=== PATIENT | female | born 1955 | race Caucasian/White ===

== ENCOUNTER → 2017-06-03 | Outpatient (CLI) | payer BC ==
--- NOTE | 2017-06-07 06:49 | MM ---
Reason for exam: screening (asymptomatic). Last mammogram was performed 1 year and 1 month ago. History: Patient is postmenopausal. Took estrogen for 7 years. Took progesterone for 7 years. Physical Findings: A clinical breast exam by your physician is recommended on an annual basis and results should be correlated with mammographic findings. MG Screening Mammo w CAD Bilateral CC and MLO view(s) were taken. Prior study comparison: May 06, 2016, bilateral MG screening mammo w CAD. January 28, 2015, bilateral MG screening mammo w CAD. The breast tissue is heterogeneously dense. This may lower the sensitivity of mammography. There is no discrete abnormality. ASSESSMENT: Negative, BI-RAD 1 RECOMMENDATION: Routine screening mammogram of both breasts in 1 year.
== END | disposition home or self-care (01) ==
LOC: RADMAMWWP 14:33
PROVIDERS: ATTEND Family Medicine
DX: Z12.31 Encounter for screening mammogram for malignant neoplasm of breast (principal)

== ENCOUNTER → 2018-08-08 | Outpatient (CLI) | payer MEDICARE, BC ==
--- NOTE | 2018-08-10 08:20 | MM ---
Reason for exam: screening (asymptomatic). Last mammogram was performed 1 year and 2 months ago. History: Patient is postmenopausal. Took estrogen for 7 years. Took progesterone for 7 years. Physical Findings: A clinical breast exam by your physician is recommended on an annual basis and results should be correlated with mammographic findings. MG 3D Screening Mammo W/Cad Bilateral CC and MLO view(s) were taken. Prior study comparison: June 03, 2017, bilateral MG screening mammo w CAD. May 06, 2016, bilateral MG screening mammo w CAD. The breast tissue is heterogeneously dense. This may lower the sensitivity of mammography. No significant changes when compared with prior studies. ASSESSMENT: Negative, BI-RAD 1 RECOMMENDATION: Routine screening mammogram of both breasts in 1 year.
== END | disposition home or self-care (01) ==
LOC: RADMAMWWP 13:34
PROVIDERS: ATTEND Family Medicine
DX: Z12.31 Encounter for screening mammogram for malignant neoplasm of breast (principal)
CPT/HCPCS: 77063; 77067

== ENCOUNTER → 2019-05-03 | Outpatient (CLI) | payer MEDICARE, BC ==
--- NOTE | 2019-05-03 09:25 | BD ---
EXAMINATION TYPE: Axial Bone Density DATE OF EXAM: 05/03/2019 COMPARISON: NONE CLINICAL HISTORY: 63 YR OLD PATIENT....ICD-10 CODE: N95.1 MENOPAUSAL Height: 67 Weight: 195 FRAX RISK QUESTIONS: Secondary Osteoporosis: YES 3. Menopause before 45: YES, NATURAL AT 42 YRS OLD RISK FACTORS HISTORY OF: Family History of Osteoporosis: YES, SISTER NO HIP FX Diet low in dairy products/other sources of calcium: YES Postmenopausal woman: YES, AT 42 YRS OLD, NATURAL Take estrogen and/or progesterone medications: YES, IN THE PAST FOR ABOUT 2 YRS MEDICATIONS: Additional Medications: STATIN FOR CHOLESTEROL, TUMS FOR CALCIUM Additional History: NOTHING TO NOTE HERE EXAM MEASUREMENTS: Bone mineral densitometry was performed using the [employer] System. Bone mineral density as measured about the Lumbar spine is: ----- L1-L4(G/cm2): 0.910 T Score Values are as follows: ----- L1: -2.1 ----- L2: -3.1 ----- L3: -2.9 ----- L4: -1.2 ----- L1-L4: -2.2 Bone mineral density FIRST BONE DENSITY .......BASELINE DEXA STUDY Bone mineral density about the R hip (g/cm2): 0.791 Bone mineral density about the L hip (g/cm2): 0.767 T Score values are as follows: -----R Neck: -1.7 -----L Neck: -1.9 -----R Total: -1.7 -----L Total: -1.9 Bone mineral density FIRST BONE DENSITY.....BASELINE STUDY FRAX%s: THERE IS A 10.2% CHANCE FOR A MAJOR OSTEOPOROTIC FX AND A 1.5% FOR HIP....PROBABILITY FOR F X IN 10 YRS TIME IMPRESSION: Osteoporosis (T Score less than -2.5) with regards to the lumbar spine. There is increased fracture risk and therapy is usually indicated based on age. Re-Screen 1-2 years. NOTE: T-SCORE=SD OF THE YOUNG ADULT MEAN.
== END | disposition home or self-care (01) ==
LOC: RADBDWWP 08:38
PROVIDERS: ATTEND Family Medicine
DX: M81.0 Age-related osteoporosis without current pathological fracture (principal); N95.9 Unspecified menopausal and perimenopausal disorder
CPT/HCPCS: 77080

== ENCOUNTER → 2020-05-29 | Outpatient (CLI) | payer BC, MEDICARE ==
[~2020-05-29] MED LIST: SODIUM CHLORIDE 0.9% 500 ML 500 ML in EMPTY BAG 1 BAG IV PRN; ZOLEDRONIC ACID 5 MG in SODIUM CHLORIDE 0.9% 100 ML IV NR
[2020-05-29 14:36] VITALS: BP 121/65; PULSE 77; RESP 16; TEMP 98.5
== END | disposition home or self-care (01) ==
LOC: PROCWHC3 14:11
PROVIDERS: ATTEND Nurse Practitioner Family
DX: M81.0 Age-related osteoporosis without current pathological fracture (principal)
CPT/HCPCS: 96365; J3489

== ENCOUNTER → 2020-06-18 | Outpatient (CLI) | payer BC, MEDICARE ==
--- NOTE | 2020-06-19 09:10 | MM ---
Reason for exam: screening (asymptomatic). Last mammogram was performed 1 year and 10 months ago. History: Patient is postmenopausal. Took estrogen for 7 years beginning at age 39. Took progesterone for 7 years beginning at age 39. Physical Findings: A clinical breast exam by your physician is recommended on an annual basis and results should be correlated with mammographic findings. MG Screening Mammo w CAD Bilateral CC and MLO view(s) were taken. Prior study comparison: August 08, 2018, bilateral MG 3d screening mammo w/cad. June 03, 2017, bilateral MG screening mammo w CAD. The breast tissue is extremely dense which could obscure a lesion on mammography. Finding #1: There is a 6 mm equal density (isodense) mass in the central position of the right breast. Finding #2: There are typically benign vascular calcifications. ASSESSMENT: Incomplete: need additional imaging evaluation, BI-RAD 0 RECOMMENDATION: Special view mammogram of the right breast. If lesion persists on supplemental views, image directed ultrasound is recommended. [facility] will attempt to contact patient to return for supplemental views and ultrasound if indicated.
== END | disposition home or self-care (01) ==
LOC: RADMAMWWP 09:35
PROVIDERS: ATTEND Family Medicine
DX: Z12.31 Encounter for screening mammogram for malignant neoplasm of breast (principal)
CPT/HCPCS: 77067

== ENCOUNTER → 2020-07-24 | Outpatient (CLI) | payer MEDICARE ==
--- NOTE | 2020-07-24 14:10 | MM ---
Reason for exam: additional evaluation requested from abnormal screening. Last mammogram was performed 1 month ago. History: Patient is postmenopausal. Took estrogen for 7 years beginning at age 39. Took progesterone for 7 years beginning at age 39. Physical Findings: Nurse did not find any significant physical abnormalities on exam. MG Work Up Mamm w CAD RT Spot compression CC, spot compression MLO, and ML view(s) were taken of the right breast. Prior study comparison: June 18, 2020, bilateral MG screening mammo w CAD. August 08, 2018, bilateral MG 3d screening mammo w/cad. There is no discrete abnormality including area of concern. No significant new findings when compared with previous films. These results were verbally communicated with the patient and result sheet given to the patient on 07/24/20. ASSESSMENT: Negative, BI-RAD 1 RECOMMENDATION: Return to routine screening mammogram schedule for both breasts.
== END | disposition home or self-care (01) ==
LOC: RADMAMWWP 13:14
PROVIDERS: ATTEND Family Medicine
DX: R92.8 Other abnormal and inconclusive findings on diagnostic imaging of breast (principal)
CPT/HCPCS: 77065

== ENCOUNTER → 2021-10-19 | Outpatient (CLI) | payer MEDICARE ==
--- NOTE | 2021-10-19 16:04 | BD ---
EXAMINATION TYPE: Axial Bone Density DATE OF EXAM: 10/19/2021 COMPARISON: NONE CLINICAL HISTORY: Height: 5 FT 7 IN Weight: 198 FRAX RISK QUESTIONS: Alcohol (3 or more units per day): NO Family History (Parent hip fracture): NO Glucocorticoids (More than 3mos): NO (Ex: prednisone, prednisolone, methylprednisolone, dexamethasone, and hydrocortisone). History of Fracture in Adulthood: NO Secondary Osteoporosis: 1. Type 1 Diabetes: NO 2. Hyperthyroidism: NO 3. Menopause before 45: YES 4. Malnutrition: NO 5. Chronic liver disease: NO Rheumatoid Arthritis: NO Current Tobacco Use: NO RISK FACTORS HISTORY OF: Surgery to Spine/Hip(right/left)/Wrist (right/left): NO Family History of Osteoporosis: YES Active: YES Diet low in dairy products/other sources of calcium: NO Postmenopausal woman: YES Take estrogen and/or progesterone medications: TOOK HRT FOR [employer]PROX SIX MONTHS AROUND AGE 42 Lost more than 2 inches in height since high school: NO Frequent falls: NO Poor Health: GOOD Hyperparathyroidism: NO Adrenal Insufficiency: NO MEDICATIONS: Additional Medications: CHOLESTEROL MEDS, Additional History: EXAM MEASUREMENTS: Bone mineral densitometry was performed using the [employer] System. Bone mineral density as measured about the Lumbar spine is: ----- L1-L4(G/cm2): 1.011 T Score Values are as follows: ----- L2: -2.1 ----- L3: -1.8 ----- L4: -0.8 ----- L1-L4: -1.4 Bone mineral density has: INCREASED 11.1 % since study of: 2018 Bone mineral density about the R hip (g/cm2): 0.821 Bone mineral density about the L hip (g/cm2): 0.827 T Score values are as follows: -----R Neck: -1.6 -----L Neck: -1.5 -----R Total: -1.9 -----L Total: -1.4 Bone mineral density has: INCREASED 2.7 % since study of: 2019 IMPRESSION: Osteopenia (T Score between -2.5 and -1). There is slightly increased risk of fracture and the patient may be considered for treatment. Re-Screen 2-5 years. NOTE: T-SCORE=SD OF THE YOUNG ADULT MEAN.
--- NOTE | 2021-10-20 14:51 | MM ---
Reason for exam: screening (asymptomatic). Last mammogram was performed 1 year and 3 months ago. History: Patient is postmenopausal. Took estrogen for 7 years beginning at age 39. Took progesterone for 7 years beginning at age 39. Physical Findings: A clinical breast exam by your physician is recommended on an annual basis and results should be correlated with mammographic findings. MG 3D Screening Mammo W/Cad Bilateral CC and MLO view(s) were taken. Prior study comparison: July 24, 2020, right breast MG work up mamm w CAD RT. June 18, 2020, bilateral MG screening mammo w CAD. Benign appearing bilateral calcifications. No significant changes when compared with prior studies. ASSESSMENT: Benign, BI-RAD 2 RECOMMENDATION: Routine screening mammogram of both breasts in 1 year.
== END | disposition home or self-care (01) ==
LOC: RADMAMWWP 08:28
PROVIDERS: ATTEND Family Medicine
DX: Z12.31 Encounter for screening mammogram for malignant neoplasm of breast (principal); M85.89 Other specified disorders of bone density and structure, multiple sites; Z78.0 Asymptomatic menopausal state
CPT/HCPCS: 77063; 77067; 77080

== ENCOUNTER → 2023-10-24 | Outpatient (CLI) | payer MEDICARE ==
--- NOTE | 2023-10-24 18:53 | BD ---
EXAMINATION TYPE: Axial Bone Density DATE OF EXAM: 10/24/2023 CLINICAL HISTORY: 68 years old Female. ICD-10 CODE: M81.0 osteoporosis Height: 67 Weight: 201 FRAX RISK QUESTIONS: History of Fracture in Adulthood: no Secondary Osteoporosis: yes 3. Menopause before 45: 42 RISK FACTORS HISTORY OF: Family History of Osteoporosis: yes, sister Active: yes Diet low in dairy products/other sources of calcium: no Postmenopausal woman: yes Lost more than 2 inches in height since high school: no Frequent falls: no MEDICATIONS: Additional Medications: yes cholesterol, calcium vit d EXAM MEASUREMENTS: Bone mineral densitometry was performed using the [employer] System. Bone mineral density as measured about the Lumbar spine is: ----- L1-L4(G/cm2): 0.951 T Score Values are as follows: ----- L1: -1.4 ----- L2: -2.8 ----- L3: -2.3 ----- L4: -1.3 ----- L1-L4: -1.9 Z Score Values are as follows: ----- L1: -0.6 ----- L2: -2.0 ----- L3: -1.5 ----- L4: -0.5 ----- L1-L4: -1.1 Bone mineral density has: Decreased -5.9% since study of: 10-19-2021 Bone mineral density about the R hip (g/cm2): 0.790 Bone mineral density about the L hip (g/cm2): 0.793 T Score values are as follows: -----R Neck: -1.8 -----L Neck: -1.7 -----R Total: -1.7 -----L Total: -1.7 Z Score values are as follows: -----R Neck: -0.6 -----L Neck: -0.6 -----R Total: -0.9 -----L Total: -0.8 Bone mineral density has: Decreased -1.0% since study of: 10-19-2021 FRAX%s: The graph provided illustrates a 10.4% chance for a major osteoporotic fx and a 1.8% chance f or the hips probability for fx in 10 years time. IMPRESSION: Osteopenia (T Score between -2.5 and -1). There is slightly increased risk of fracture and the patient may be considered for treatment. Re-Screen 2-5 years. NOTE: T-SCORE=SD OF THE YOUNG ADULT MEAN.
--- NOTE | 2023-10-26 08:34 | MM ---
Reason for Exam: Screening (asymptomatic). Last mammogram was performed 2 year(s) and 0 month(s) ago. Patient History: Menarche at age 11. First Full-Term at age 18. Postmenopausal. Estrogen for 7 years from age 39 until age 46. Progesterone for 7 years from age 39 until age 46. Risk Values: Genevieve 5 year model risk: 1.5%. NCI Lifetime model risk: 4.5%. Prior Study Comparison: 06/18/2020 Bilateral Screening Mammogram, [facility]. 07/24/2020 Right Diagnostic Mammogram, [facility]. 10/19/2021 Bilateral Screening Mammogram, [facility]. Tissue Density: The breast tissue is heterogeneously dense. This may lower the sensitivity of mammography. Findings: Analyzed By CAD. There is no suspicious group of microcalcifications or new suspicious mass in either breast. Overall Assessment: Benign, BI-RAD 2 Management: Screening Mammogram of both breasts in 1 year. . Patient should continue monthly self-breast exams. A clinical breast exam by your physician is recommended on an annual basis. This exam should not preclude additional follow-up of suspicious palpable abnormalities. Note on Genevieve scores and lifetime risk: 1. A Genevieve score greater than 3% is considered moderate risk. If this is the case, consider specialist referral to assess eligibility for a risk reducing agent. 2. If overall lifetime risk for the development of breast cancer is 20% or higher, the patient may qualify for future screening with alternating mammogram and breast MRI. Electronically signed and approved by: Girma Regan M.D. Radiologis
== END | disposition home or self-care (01) ==
LOC: RADMAMWWP 09:40
PROVIDERS: ATTEND Family Medicine
DX: Z12.31 Encounter for screening mammogram for malignant neoplasm of breast (principal); M81.0 Age-related osteoporosis without current pathological fracture; M85.89 Other specified disorders of bone density and structure, multiple sites; Z78.0 Asymptomatic menopausal state
CPT/HCPCS: 77063; 77067; 77080